=== PATIENT | male | born 1990 | race Hispanic/Latino ===

== ENCOUNTER 2018-03-13 09:41 | Emergency (ER) | payer SELFPAY ==
--- NOTE | 2018-03-13 11:39 | RAD ---
4 VIEWS RIGHT KNEE: Date: 03/13/18 COMPARISON: None. HISTORY: Right knee pain after fall. FINDINGS: Four views of the right knee show no evidence of acute fracture or dislocation. No knee effusion is s een. No degenerative changes are present. IMPRESSION: Unremarkable exam. POS: [facility]
== END 2018-03-13 11:43 | disposition home or self-care (01) ==
LOC: ERS 09:41
DX: S83.91XA Sprain of unspecified site of right knee, initial encounter (principal); W19.XXXA Unspecified fall, initial encounter

== ENCOUNTER 2019-01-28 20:44 | Emergency (ER) | payer SELFPAY ==
[2019-01-28 21:27] LABS: #Eosinphils 0.1 thou/uL (0.0-0.7); #Lymphocytes 3.2 thou/uL (1.20-3.40); #Monocytes 0.7 thou/uL (0.11-0.59); %Basophils 0.3 % (0.0-1.0); %Eosinophils 0.7 % (0.0-10.0); %Lymphocytes 24.2 % (21.0-51.0); %Monocytes 5.3 % (0.0-10.0); %Neutrophils 69.4 % (42.0-75.0); Hemoglobin 13.2 g/dL (14.0-18.0); Mean Corpuscular HGB CONC 32.9 g/dL (32.0-36.0); Mean Corpuscular Hemoglobin 26.8 pg (27.0-31.0); Mean Corpuscular Volume 81.5 fL (78.0-98.0); Mean Platelet Volume 7.3 fL (7.4-10.4); Platelet Count 285 thou/uL (130-400); RBC Distribution Width 12.6 % (11.5-14.5); Red Blood Cell (RBC) Count 4.92 mill/uL (4.70-6.10)
--- NOTE | 2019-01-28 21:43 | RAD ---
2 views of the chest: 01/28/2019 COMPARISON: None HISTORY: Shortness of breath FINDINGS: No pneumothorax or pleural fluid. No focal consolidation or alveolar edema. Heart and media stinal contours are grossly unremarkable. IMPRESSION: No acute findings.
[2019-01-28 21:47] LABS: ALT (SGPT) 22 U/L (8-55); AST (SGOT) 14 U/L (5-34); Albumin 3.7 g/dL (3.5-5.0); Alkaline Phosphatase 74 U/L (40-150); Anion Gap 12 mmol/L (10-20); BUN (Urea Nitrogen) 13 mg/dL (8.9-20.6); Bilirubin, Total 0.3 mg/dL (0.2-1.2); Calc. Creatinine Clearance 0 mL/min (70-130); Calcium 9.1 mg/dL (7.8-10.44); Carbon Dioxide 26 mmol/L (22-29); Chloride 107 mmol/L (98-107); Estimated GFR-MDRD Greater than 90; Globulin 3.7 g/dL (2.4-3.5); Glucose 118 mg/dL (70-105); Potassium 3.8 mmol/L (3.5-5.1); Protein, Total 7.4 g/dL (6.0-8.3); Sodium 141 mmol/L (136-145)
[2019-01-28 22:01] LABS: Acetaminophen Less than 6.0 mcg/mL (10.0-30.0); Alcohol Less than 10 mg/dL (Less than 10); Salicylate Less than 8.0 mg/dL (15.0-30.0)
== END 2019-01-28 23:17 | disposition home or self-care (01) ==
LOC: ERS 20:44
DX: R06.02 Shortness of breath (principal); R07.89 Other chest pain
CPT/HCPCS: 36415; 36416; 71046; 80053; 80307; 83880; 84484; 85025; 85379; 93005; 96360

== ENCOUNTER 2023-05-25 23:39 | Emergency (ER) | payer BC, SELFPAY ==
[2023-05-26] MEDS ORDERED: Lidocaine 2% Viscous Solution 10 ML, Aluminum & Magnesium Hydroxide 30 ML SSW SCH (00:45)
[2023-05-26 00:49] LABS: #Eosinphils 0.1 thou/uL (0.0-0.7); #Monocytes 0.7 thou/uL (0.11-0.59); #Neutrophils 9.7 thou/uL (1.40-6.50); %Basophils 0.3 % (0.0-1.0); %Eosinophils 0.7 % (0.0-10.0); %Lymphocytes 24.3 % (21.0-51.0); %Monocytes 4.9 % (0.0-10.0); %Neutrophils 69.4 % (42.0-75.0); Hematocrit 40.2 % (42.0-52.0); Hemoglobin 12.7 g/dL (14.0-18.0); Mean Corpuscular HGB CONC 31.6 g/dL (32.0-36.0); Mean Corpuscular Hemoglobin 25.9 pg (27.0-31.0); Mean Platelet Volume 9.4 fL (7.4-10.4); Platelet Count 314 10x3/uL (130-400)
[2023-05-26] MEDS ORDERED: Dicyclomine 20 MG TAB ONE (00:49)
[2023-05-26] MEDS ORDERED: Famotidine 20 MG TAB ONE (00:49)
[2023-05-26 01:12] LABS: ALT (SGPT) 20 U/L (8-55); AST (SGOT) 14 U/L (5-34); Albumin 3.7 g/dL (3.5-5.0); Alkaline Phosphatase 80 U/L (40-110); Anion Gap 13 mmol/L (10-20); BUN (Urea Nitrogen) 12 mg/dL (8.9-20.6); Bilirubin, Total 0.4 mg/dL (0.2-1.2); Calc. Creatinine Clearance 0 mL/min (70-130); Calcium 9.2 mg/dL (7.8-10.44); Carbon Dioxide 25 mmol/L (22-29); Chloride 103 mmol/L (98-107); Estimated GFR 120; Globulin 4.3 g/dL (2.4-3.5); Glucose 168 mg/dL (70-105); Lipase 12 U/L (8-78); Potassium 3.9 mmol/L (3.5-5.1); Sodium 137 mmol/L (136-145)
== END 2023-05-26 02:28 | disposition home or self-care (01) ==
LOC: ERS 23:39
DX: K21.9 Gastro-esophageal reflux disease without esophagitis (principal); E11.9 Type 2 diabetes mellitus without complications; E78.5 Hyperlipidemia, unspecified; E66.9 Obesity, unspecified; Z79.899 Other long term (current) drug therapy; Z79.84 Long term (current) use of oral hypoglycemic drugs
CPT/HCPCS: 36415; 80053; 83690; 85025; 93005

== ENCOUNTER 2025-05-27 04:17 | Emergency (ER) | payer BC, SELFPAY ==
[2025-05-27] MEDS ORDERED: Acetaminophen 500 MG TAB ONE (05:10)
[2025-05-27 05:19] LABS: #Basophils 0.04 10x3/uL (0.0-0.2); #Eosinophils 0.19 10x3/uL (0.0-0.7); #Monocytes 0.71 10x3/uL (0.11-0.59); #Neutrophils 8.26 10x3/uL (1.40-6.50); %Basophils 0.3 % (0.0-1.0); %Eosinophils 1.4 % (0.0-10.0); %Lymphocytes 32.5 % (21.0-51.0); %Monocytes 5.2 % (0.0-10.0); %Neutrophils 60.4 % (42.0-75.0); Hematocrit 38.5 % (42.0-52.0); Hemoglobin 11.7 g/dL (14.0-18.0); Mean Corpuscular Hemoglobin 25.4 pg (27.0-31.0); Mean Corpuscular Volume 83.5 fL (78.0-98.0); Platelet Count 252 10x3/uL (130-400); Red Blood Cell (RBC) Count 4.61 mill/uL (4.70-6.10); White Blood Cell (WBC) Count 13.67 10x3/uL (4.8-10.8)
[2025-05-27 05:34] LABS: ALT (SGPT) 21 U/L (Less than 45); AST (SGOT) 22 U/L (11-34); Albumin 3.2 g/dL (3.1-4.5); Alkaline Phosphatase 68 U/L (40-110); Anion Gap 17 mmol/L (10-20); BUN (Urea Nitrogen) 13 mg/dL (8.9-20.6); Bilirubin, Total 0.6 mg/dL (0.3-1.2); Calc. Creatinine Clearance 0 mL/min (70-130); Calcium 8.4 mg/dL (7.8-10.44); Carbon Dioxide 23 mmol/L (22-29); Chloride 104 mmol/L (98-107); Globulin 3.3 g/dL (2.4-3.5); Glucose 110 mg/dL (70-105); Lipase 23 U/L (8-78); Magnesium 2.0 mg/dL (1.6-2.6); Potassium 4.2 mmol/L (3.5-5.1); Sodium 140 mmol/L (136-145)
== END 2025-05-27 06:37 | disposition home or self-care (01) ==
LOC: ERS 04:17
DX: R07.9 Chest pain, unspecified (principal); E11.9 Type 2 diabetes mellitus without complications; E78.5 Hyperlipidemia, unspecified
CPT/HCPCS: 71045; 80053; 83690; 83735; 84484; 85025; 93005